=== PATIENT | female | born 1990 | race American Indian/Alaskan Native ===

== ENCOUNTER 2020-05-08 06:35 | Outpatient (CLI) | payer OTHER, SELFPAY ==
[2020-05-08 07:57] LABS: Beta HCG Quantitative < 2.39 mIU/ML
== END 2020-05-08 06:36 | disposition home or self-care (01) ==
PROVIDERS: PCP Family Medicine; Visit Provider Obstetrics & Gynecology
DX: N92.6 Irregular menstruation, unspecified (principal)
CPT/HCPCS: 36415; 84702